=== PATIENT | female | born 1950 | race Caucasian/White ===

== ENCOUNTER 2016-12-25 13:57 | Outpatient (CLI) | payer MEDICARE, OTHER ==
--- NOTE | 2016-12-25 17:09 | XRAY Report ---
TWO VIEW CHEST: 12/25/2016 CLINICAL INDICATION: Shortness of breath. COMPARISON: 09/12/2008. FINDINGS: Frontal and lateral views of the chest demonstrate a normal cardiac silhouette. The lungs are clear. No effusion or pneumothorax is present. IMPRESSION: NORMAL CHEST. :9 JOB #: [id number] EXT JOB #:[id number]
== END 2016-12-25 13:58 | disposition home or self-care (01) ==
LOC: DI 13:57
PROVIDERS: ATTEND Internal Medicine
DX: R06.02 Shortness of breath (principal)
CPT/HCPCS: 71020

== ENCOUNTER 2017-02-26 10:17 | Outpatient (CLI) | payer MEDICARE, OTHER ==
--- NOTE | 2017-02-27 19:34 | Mammography Report ---
DIGITAL SCREENING MAMMOGRAM: 02/26/2017 CLINICAL INDICATION: A 66-year-old with history of reduction for screening. COMPARISON: 01/2016, 12/2014, 12/2013, 12/2012, 12/2011, 06/2010, 09/2008. TECHNIQUE: Routine CC and MLO projections were obtained of the breasts. The breasts demonstrate fatty replacement bilaterally. Postoperative changes are stable. Coarse and punctate, typically benign calcifications are present. No suspicious masses, clustered microcalcifi cations, or regions of architectural distortion are identified. IMPRESSION: BENIGN FINDINGS. RECOMMENDATION: ROUTINE ANNUAL SCREENING UNLESS OTHERWISE CLINICALLY INDICATED. BIRADS CATEGORY: 2, BENIGN FINDINGS. STANDARD QUALIFYING STATEMENTS 1. This examination was reviewed with the aid of Computed-Aided Detection (CAD). 2. A negative or benign imaging report should not delay biopsy if clinically suspicious findings are present. Consider surgical consultation if warranted. More than 5% of cancers are not identified b y imaging. 3. Dense breasts may obscure an underlying neoplasm. JOB #: [id number] EXT JOB #:[id number]
== END 2017-02-26 10:18 | disposition home or self-care (01) ==
LOC: DI 10:17
PROVIDERS: ATTEND Obstetrics & Gynecology
DX: Z12.31 Encounter for screening mammogram for malignant neoplasm of breast (principal)
CPT/HCPCS: 77067